=== PATIENT | male | born 1985 | race Caucasian/White ===

== ENCOUNTER 2021-09-09 20:03 | Inpatient (IN) ==
[2021-09-09 20:37] LABS: Appearance Urine Clear (Clear); Bilirubin Urine Negative (Negative); Blood Urine Negative (Negative); Color Urine Yellow; Glucose Urine UA Negative (Negative); Ketones Urine Negative (Negative); Leukocyte Esterase Urine Negative (Negative); Nitrite Urine Negative (Negative); Protein Urine Negative (Negative); Specific Gravity Urine 1.013 (1.000-1.030); Urobilinogen Urine Negative (Negative); pH Urine 6.5 (4.5-7.5)
[2021-09-09 20:55] LABS: Amphetamines+Metham, Urine Neg (Neg); Barbiturates, Urine Neg (Neg); Benzodiazepine, Urine Neg (Neg); Cocaine, Urine Neg (Neg); MDMA (Ecstacy), Urine Neg (Neg); Methadone, Urine Neg (Neg); Opiate, Urine Neg (Neg); Phencyclidine, Urine Neg (Neg)
--- NOTE | 2021-09-09 21:08 | Emergency Department Note ---
Impression & Plan Mood disorder, Marijuana use, Hypokalemia ED Provider Note Provider: Caleb Horn MD DATE OF SERVICE: 09/09/2021 CHIEF COMPLAINT: Mental health evaluation HISTORY OF PRESENT ILLNESS: Patient is a 36-year-old gentleman history of marijuana and alcohol use presenting with police today for mental health evaluation. Patient evidently is originally from [place] and has been traveling to [place]. Reportedly stopped the area several days ago and has been staying in a motel until this coming week. Was seen here several days ago for mental health evaluation and discharged from here. Patient evidently took some pictures at his motel tonight of him holding a gun to his head and at the mere hence he sent these to his mother. She became concerned called her local please officer [place] who eventually contacted local police here who went and discussed this further with the patient and brought him here for evaluation. 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 He reports that he does not want to harm himself or anybody else. He denies feeling anxious or depressed. Reports he did previously try to kill himself years ago with a Valium overdose. He states he has been inpatient psychiatrically at many facilities across the country. Reports he is not currently on medications. Reports he is recently on Seroquel several weeks ago but this made him too drowsy and thus he stopped it as he states his mother was just giving him the medicine as she has Munchhausen's. Patient states that he is working for the [employer] and that angles are protecting him and God is directing this. Patient denies wanting inpatient psychiatric care at this time and just wants to return to his motel. Police have completed a 302 petition and report they have secured a "gun "in the pictures that was found with the person when they met him and report it was a BB gun. REVIEW OF SYSTEMS: A total of 10 review of systems was obtained and negative except as stated above in the HPI. PAST MEDICAL HISTORY: As noted above MEDICATIONS: Denies current prescription medications SOCIAL HISTORY: Regular alcohol and marijuana use. PHYSICAL EXAM: GENERAL: alert and oriented in no acute distress lying in the bed in room A5 Head: normocephalic and atraumatic EYES: No injection, discharge or icterus. NECK: Trachea midline. ENT: Mucous membranes pink and moist. LUNGS: Airway patent. No retractions. Breath sounds clear HEART: Regular rate and rhythm. No chest wall tenderness ABDOMEN: Soft and non-tender, without guarding or rebound. SKIN: Acyanotic, warm, dry, without rashes NEUROLOGICAL: No focal deficits. No aphasia. No facial droop or slurred speech. Psych: Patient denies acute SI or HI. He denies hallucination is not obviously responding to external stimuli. Patient does make some grandiose statements regarding the [employer]. Patient's laboratory studies reviewed. Differential includes Mood disorder, infection, hypoglycemia, electrolyte abnormalities, cardiac sources, intracerebral event, toxicologic, trauma, neurologic, as well as other pathologies. IMPRESSION/MEDICAL DECISION MAKING: Patient cooperative here. 302 petition and statements from both police and mother reviewed. Significant questions about patient is underlying psychiatric history and report that he is off his medications. Concerning text messages/pictures showing the patient holding a gun pointed towards himself. Basic medical labs completed here without any severe abnormality with some mild hypokalemia, oral repletion ordered THC positive but the patient admits to this. Not significantly intoxicated. Patient currently denies wanting to harm her self or others but does make some slightly odd/grandiose statements that he is working for the [employer]. Question the patient safety, although the police have secured his "gun" (bb), with discharge at this time. Seems to have had some escalation compared to recent evaluation here several days ago. Seen by the business case analyst here as well. Discussed with the patient my significant safety concerns and recommendation for inpatient psychiatric care. Patient states he really just wants to go home. Patient reports that he feels he is being [place] rassed. Patient states he would agree for a 72-hour hold but wants to leave promptly by the to continue towards [place]. Evaluated by [facility] and accepted on a 201 for further inpatient care. DIAGNOSIS: Mood disorder, hypokalemia DISPOSITION: Excepted on a 201 for further inpatient care to [facility] Past Med/Surg History Medical History Bipolar 1 disorder MDD (major depressive disorder) Schizophrenia Surgical History No pertinent past surgical history Social History (Updated 09/08/21 @ 01:08 by Artemio Orozco MD) Smoking Status: Current every day smoker Tobacco Type: Cigarettes Hx Alcohol Use: Yes Hx Substance Use: Yes Prescribed Medications: Marijuana Preferred Language: Irish Feels Safe at Home: No Allergies Allergies Allergy/AdvReac Type Severity Reaction Status Date / Time No Known Allergies Allergy Verified 09/09/21 20:27 Home Meds Home Medications Medication Instructions Recorded Confirmed No Known Home Medications 09/07/21 09/09/21 Results & Data (ED) Vital Signs Vital Signs - 24 hr 09/09/21 20:10 09/09/21 22:04 Temperature 37.1 C Temperature Source Oral Pulse Rate 96 H Pulse Rate [Right Finger] 96 H 100 H Respiratory Rate 18 18 Respiratory Effort / Characteristics Non-Labored Spontaneous Non-Labored Spontaneous Respiratory Depth Normal Normal Respiratory Pattern Regular Regular Blood Pressure 147/96 H Blood Pressure [Left Arm] 147/96 H 146/82 H Blood Pressure Mean 113 Blood Pressure Mean [Left Arm] 113 103 Blood Pressure Position Sitting Blood Pressure Position [Left Arm] Sitting Sitting Pulse Oximetry 97 97 Oxygen Delivery Method Room Air Room Air Sepsis Recent Fever Within 48 Hours No Sepsis New/Unexplained Change in Mental Status N/A Sepsis Action Taken by Nursing No Action Required Laboratory Data Result diagrams: 09/09/21 21:07 09/09/21 21:07 Lab Results 09/09/21 09/09/21 09/09/21 Range/Units 20:11 20:11 20:32 WBC (4.8-10.8) K/uL RBC (4.7-6.1) M/uL Hgb (14.0-18.0) g/dL Hct (42-52) % MCV (80-100) fL MCH (25-34) pg MCHC (32-36) g/dL RDW Std Deviation (36.4-46.3) fL RDW Coeff of Deidre (11.5-14.5) % Plt Count (130-400) K/uL MPV (7.4-10.4) fL Immature Gran % (Auto) % Neut % (Auto) % Lymph % (Auto) % [place] % (Auto) % Eos % (Auto) % Baso % (Auto) % Neut # (Auto) (1.4-6.5) K/uL Lymph # (Auto) (1.2-3.4) K/uL [place] # (Auto) (0.11-0.59) K/uL Eos # (Auto) (0-0.5) K/uL Baso # (Auto) (0-0.2) K/uL Immature Gran # (Auto) (0.00-0.02) K/uL Sodium (136-145) mmol/L Potassium (3.5-5.1) mmol/L Chloride (98-107) mmol/L Carbon Dioxide (21-32) mmol/L Anion Gap (3-11) BUN (7-18) mg/dl Creatinine (0.6-1.4) mg/dl Est Cr Clr Drug Dosing ml/min Est GFR ( Amer) ml/min Est GFR (Non-Af Amer) ml/min BUN/Creatinine Ratio (10-20) Glucose (70-99) mg/dl Calcium (8.5-10.1) mg/dl Total Bilirubin (0.2-1) mg/dl AST (15-37) U/L ALT (12-78) Alkaline Phosphatase (45-117) U/L Total Protein (6.4-8.2) gm/dl Albumin (3.4-5.0) gm/dl Globulin (2.5-4.0) gm/dl Albumin/Globulin Ratio (0.9-2) TSH (0.300-4.500) uIu/ml Urine Color Yellow Urine Appearance Clear (Clear) Urine pH 6.5 (4.5-7.5) Ur Specific [place] 1.013 (1.000-1.030) Urine Protein Negative (Negative) Urine Glucose (UA) Negative (Negative) Urine Ketones Negative (Negative) Urine Blood Negative (Negative) Urine Nitrite Negative (Negative) Urine Bilirubin Negative (Negative) Urine Urobilinogen Negative (Negative) Ur Leukocyte Esterase Negative (Negative) Salicylates (2.8-20) mg/dl Urine Opiates Screen Neg (Neg) Ur Methadone, Qual Neg (Neg) Acetaminophen (10-30) ug/ml Urine Barbiturates Neg (Neg) Ur Phencyclidine (PCP) Neg (Neg) U Amphetamin/Meth Scrn Neg (Neg) MDMA (Ecstasy) Screen Neg (Neg) U Benzodiazepines Scrn Neg (Neg) Ur Cocaine Metabolite Neg (Neg) U Marijuana (THC) Screen Pos H (Neg) Ethyl Alcohol mg/dL (0-3) mg/dl SARS-CoV-2, RNA, NAAT NEGATIVE (NEGATIVE) 09/09/21 09/09/21 09/09/21 Range/Units 21:07 21:07 21:07 WBC 9.23 (4.8-10.8) K/uL RBC 4.77 (4.7-6.1) M/uL Hgb 15.2 (14.0-18.0) g/dL Hct 44.0 (42-52) % MCV 92.2 (80-100) fL MCH 31.9 (25-34) pg MCHC 34.5 (32-36) g/dL RDW Std Deviation 43.9 (36.4-46.3) fL RDW Coeff of Deidre 13.1 (11.5-14.5) % Plt Count 272 (130-400) K/uL MPV 10.7 H (7.4-10.4) fL Immature Gran % (Auto) 0.1 % Neut % (Auto) 56.2 % Lymph % (Auto) 33.3 % [place] % (Auto) 8.6 % Eos % (Auto) 1.5 % Baso % (Auto) 0.3 % Neut # (Auto) 5.19 (1.4-6.5) K/uL Lymph # (Auto) 3.07 (1.2-3.4) K/uL [place] # (Auto) 0.79 H (0.11-0.59) K/uL Eos # (Auto) 0.14 (0-0.5) K/uL Baso # (Auto) 0.03 (0-0.2) K/uL Immature Gran # (Auto) 0.01 (0.00-0.02) K/uL Sodium 141 (136-145) mmol/L Potassium 3.1 L (3.5-5.1) mmol/L Chloride 107 (98-107) mmol/L Carbon Dioxide 24 (21-32) mmol/L Anion Gap 10.0 (3-11) BUN 11 (7-18) mg/dl Creatinine 1.02 (0.6-1.4) mg/dl Est Cr Clr Drug Dosing 103.4 ml/min Est GFR ( Amer) 107.6 ml/min Est GFR (Non-Af Amer) 92.8 ml/min BUN/Creatinine Ratio 10.8 (10-20) Glucose 165 H (70-99) mg/dl Calcium 8.3 L (8.5-10.1) mg/dl Total Bilirubin 0.3 (0.2-1) mg/dl AST 27 (15-37) U/L ALT 45 (12-78) Alkaline Phosphatase 93 (45-117) U/L Total Protein 7.4 (6.4-8.2) gm/dl Albumin 3.4 (3.4-5.0) gm/dl Globulin 4.0 (2.5-4.0) gm/dl Albumin/Globulin Ratio 0.9 (0.9-2) TSH 1.380 (0.300-4.500) uIu/ml Urine Color Urine Appearance (Clear) Urine pH (4.5-7.5) Ur Specific [place] (1.000-1.030) Urine Protein (Negative) Urine Glucose (UA) (Negative) Urine Ketones (Negative) Urine Blood (Negative) Urine Nitrite (Negative) Urine Bilirubin (Negative) Urine Urobilinogen (Negative) Ur Leukocyte Esterase (Negative) Salicylates 3.2 (2.8-20) mg/dl Urine Opiates Screen (Neg) Ur Methadone, Qual (Neg) Acetaminophen < 2 L (10-30) ug/ml Urine Barbiturates (Neg) Ur Phencyclidine (PCP) (Neg) U Amphetamin/Meth Scrn (Neg) MDMA (Ecstasy) Screen (Neg) U Benzodiazepines Scrn (Neg) Ur Cocaine Metabolite (Neg) U Marijuana (THC) Screen (Neg) Ethyl Alcohol mg/dL (0-3) mg/dl SARS-CoV-2, RNA, NAAT (NEGATIVE) 09/09/21 Range/Units 21:07 WBC (4.8-10.8) K/uL RBC (4.7-6.1) M/uL Hgb (14.0-18.0) g/dL Hct (42-52) % MCV (80-100) fL MCH (25-34) pg MCHC (32-36) g/dL RDW Std Deviation (36.4-46.3) fL RDW Coeff of Deidre (11.5-14.5) % Plt Count (130-400) K/uL MPV (7.4-10.4) fL Immature Gran % (Auto) % Neut % (Auto) % Lymph % (Auto) % [place] % (Auto) % Eos % (Auto) % Baso % (Auto) % Neut # (Auto) (1.4-6.5) K/uL Lymph # (Auto) (1.2-3.4) K/uL [place] # (Auto) (0.11-0.59) K/uL Eos # (Auto) (0-0.5) K/uL Baso # (Auto) (0-0.2) K/uL Immature Gran # (Auto) (0.00-0.02) K/uL Sodium (136-145) mmol/L Potassium (3.5-5.1) mmol/L Chloride (98-107) mmol/L Carbon Dioxide (21-32) mmol/L Anion Gap (3-11) BUN (7-18) mg/dl Creatinine (0.6-1.4) mg/dl Est Cr Clr Drug Dosing ml/min Est GFR ( Amer) ml/min Est GFR (Non-Af Amer) ml/min BUN/Creatinine Ratio (10-20) Glucose (70-99) mg/dl Calcium (8.5-10.1) mg/dl Total Bilirubin (0.2-1) mg/dl AST (15-37) U/L ALT (12-78) Alkaline Phosphatase (45-117) U/L Total Protein (6.4-8.2) gm/dl Albumin (3.4-5.0) gm/dl Globulin (2.5-4.0) gm/dl Albumin/Globulin Ratio (0.9-2) TSH (0.300-4.500) uIu/ml Urine Color Urine Appearance (Clear) Urine pH (4.5-7.5) Ur Specific [place] (1.000-1.030) Urine Protein (Negative) Urine Glucose (UA) (Negative) Urine Ketones (Negative) Urine Blood (Negative) Urine Nitrite (Negative) Urine Bilirubin (Negative) Urine Urobilinogen (Negative) Ur Leukocyte Esterase (Negative) Salicylates (2.8-20) mg/dl Urine Opiates Screen (Neg) Ur Methadone, Qual (Neg) Acetaminophen (10-30) ug/ml Urine Barbiturates (Neg) Ur Phencyclidine (PCP) (Neg) U Amphetamin/Meth Scrn (Neg) MDMA (Ecstasy) Screen (Neg) U Benzodiazepines Scrn (Neg) Ur Cocaine Metabolite (Neg) U Marijuana (THC) Screen (Neg) Ethyl Alcohol mg/dL 32.6 H (0-3) mg/dl SARS-CoV-2, RNA, NAAT (NEGATIVE) Administered Medications Discontinued Medications Potassium Chloride (Potassium Chloride Crtab 20 Meq Tabcr) 40 meq PO NOW STA Stop: 09/09/21 23:40 Last Admin: 09/10/21 00:04 Dose: 40 meq Documented by: [id number] Discharge Plan Visit Data Chief Complaint: Mental Health Evaluation Stated Complaint: MENTAL HEALTH EVAL ED Provider: Caleb Horn Discharge Problem: Mood disorder, Marijuana use, Hypokalemia Patient Disposition: Transfer Behavioral Health Fac Discharge Instructions Interventions: ED Discharge Assessment Last Done: 09/10/21 00:15
[2021-09-09 21:22] LABS: Basophils # (auto) 0.03 K/uL (0-0.2); Basophils % (auto) 0.3 %; Eosinophils # (auto) 0.14 K/uL (0-0.5); Eosinophils % (auto) 1.5 %; Hemoglobin 15.2 g/dL (14.0-18.0); Immature Granulocytes # (auto) 0.01 K/uL (0.00-0.02); Immature Granulocytes % (auto) 0.1 %; Lymphocytes # (auto) 3.07 K/uL (1.2-3.4); Lymphocytes % (auto) 33.3 %; Mean Corpuscular Hemoglobin 31.9 pg (25-34); Mean Corpuscular Hgb Conc 34.5 g/dL (32-36); Mean Corpuscular Volume 92.2 fL (80-100); Mean Platelet Volume 10.7 fL (7.4-10.4); Monocytes # (auto) 0.79 K/uL (0.11-0.59); Monocytes % (auto) 8.6 %; Neutrophils # (auto) 5.19 K/uL (1.4-6.5); Neutrophils % (auto) 56.2 %; Platelet Count 272 K/uL (130-400); RDW Coefficient of Variation 13.1 % (11.5-14.5); RDW Standard Deviation 43.9 fL (36.4-46.3); Red Blood Count 4.77 M/uL (4.7-6.1); White Blood Count 9.23 K/uL (4.8-10.8)
[2021-09-09 21:39] LABS: Albumin Level 3.4 gm/dl (3.4-5.0); BUN Creatinine Ratio 10.8 (10-20); Calcium 8.3 mg/dl (8.5-10.1); Creatinine Clr Calc Pharmacy 103.4 ml/min; Est GFR (African American) 107.6 ml/min; Est GFR (Non-African American) 92.8 ml/min; Potassium 3.1 mmol/L (3.5-5.1)
[2021-09-09 21:41] LABS: Acetaminophen < 2 ug/ml (10-30); Salicylate 3.2 mg/dl (2.8-20)
[2021-09-09 21:49] LABS: Albumin Globulin Ratio 0.9 (0.9-2); Bilirubin,Total 0.3 mg/dl (0.2-1); Thyroid Stimulating Hormone 1.38 uIu/ml (0.300-4.500); Total Protein 7.4 gm/dl (6.4-8.2)
[2021-09-09] MEDS ORDERED: POTASSIUM CHLORIDE CRTAB 20 MEQ TABCR PO STA (23:39)
[2021-09-09] MEDS ORDERED: ALUMINUM/MAGNESIUM SUSP 30 ML UDC PO PRN (23:57)
[2021-09-09] MEDS ORDERED: BISMUTH SUBSALICYLATE LIQD 236 ML PO PRN (23:57)
[2021-09-09] MEDS ORDERED: ACETAMINOPHEN 325 MG TAB PO PRN (23:57)
[2021-09-09] MEDS ORDERED: SODIUM CHLORIDE 0.65% NA SOLN 45 ML (OCEAN) PRN (23:57)
[2021-09-09] MEDS ORDERED: hydrOXYzine HCl 25 MG TAB PO PRN ×2 (23:57)
[2021-09-09] MEDS ORDERED: MAGNESIUM HYDROXIDE SUSP 30 ML UDC PO PRN (23:57)
[2021-09-09] MEDS ORDERED: haloperidoL 5 MG TAB PO PRN (23:58)
[2021-09-10] MEDS ORDERED: QUEtiapine FUMARATE 100 MG TABLET PO PRN (13:03)
--- NOTE | 2021-09-10 13:29 | History & Physical ---
Date of Service September 10, 2021 Impression / Recommendations Impression 36 yo male presenting with grandiosity, delusions, seen in ED when family questioned ability to care for self given medication non-compliance. 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 He does appear well care for and has been cooperative on the unit thus far, eating, drinking. He did sign a 72 hour notice but is agreeable to ongoing hospitalization and monitoring. (1) Bipolar 1 disorder: The patient was [facility] on q15 min checks (behavioral with suicide precautions) for safety. The patient will participate in group, recreational, and milieu therapies and will be offered additional individual and family sessions as clinically appropriate. He is currently refusing ROIs and lamictal trial. He is willing to take Seroquel 100 mg prn if "it will get me out of here" and understands risks/benefits of his medications. He maintains he is planning to relocate to [place] and is familiar with their medicaid/mental health system there. Inventory Assets Strengths: intelligent, able to navigate services in past Needs: increase insight into his condition, abstain from MJ Risk Factors Assessment Male: Yes : Yes Do You Have Access To A Gun?: No Mental Health Diagnoses: Yes Previous Attempt: Yes Previous Psychiatric Hospitalization: Yes Protective Factors Assessment : No Responsible for Young Children: No (but is motivated to visit son) Employed: Yes Stable Relationships: No Psychiatric History Identifying Data MANJEET CASTILLO is a 36-year-old M from [place], has a history of bipolar disorder, and was admitted on 09/09/21 23:55 on a 201 voluntary commitment for posting about suicide. He initially presented on a 302 warrant but was willing to sign in. Chief Complaint "I went to school here and am just visiting on my way to [place], I'm 36 yo and my mom has [employer]unchausen's and I have a right to have a BB gun and post for music". History of Present Illness Patient came to ED on 09/07/21 at the urging of his family and was discharged at that time. He states he has a prescription for Seroquel and lamictal from a psychiatrist at [facility]. He hasn't taken Seroquel for several months and never started Lamictal as he does not feel he needs medication and prefers to use MJ. [place] and refuses to sign an VENICE. 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 He denies wanting to harm himself (except in [id number]) when having relationship issues. He signed a 72 hour notice this am. "I'm fine being here a bit but I don't want to lose my stuff at the hotel and need to get to [place] to see my son". He reports his son is 9 years old. He also admits to having an outstanding warrant in [place] "so I'm probably going to skilled nursing" and is not clear on the charges. He then stated the charges stem from a conspiracy involving Wilmer Franklin and that he plans to run for president in 2023, "I know I won't win, I just want to mess with people". 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 When asked about adventist preoccupations last night, being "guarded by angels" he stated "doesn't everyone into [place] want to go to [facility]? I still don't want to kill myself." Upon arrival to the unit he has been talkative but cooperative. He is eating and sleeping. He denies being depressed or anxious, even with regards to uncertainty around his status with probation, "I just want to get it cleared up with the police judge". He implied that one of the times he was hospitalized or incarcerated he met the "Batman" killer, referring to the shooting in the movie theatre. He stated he said this to impress people with the types of places he's been, not because of any attachment to that killer. The police have confiscated his BB gun. He states he had it as a prop and incorporates it into his [employer] videos and says "I know my rights" again. Past Psychiatric History Previous Psych History: bipolar disorder and schizoaffective disorder, bipolar type diagnoses in past. He discounts. Current Psychiatric Diagnosis: Mood disorder Outpatient Services: [facility] won't sign for records as "I'm not going back there". Previous Psych Admissions: multiple, reportedly 3 this fall due to medication compliance issues. Do You Have Access To A Gun?: No History of Previous Suicide Attempt: Yes (OD of Valium in [id number]) Past Medication Trials: multiple--Haldol (blunting, "no human should take that stuff"), Seroquel (c/o sedation yet also sleep disruption which is likely due to zoila), Abilify ("bad", odd comment), Zyprexa (says that the words spell sex so must mess with his sex), [place], probably Depakote, remote hx of aggression in college when intoxicated "we thought we were street thugs" Allergies Allergy/AdvReac Type Severity Reaction Status Date / Time No Known Allergies Allergy Verified 09/09/21 20:27 Home Medications Medication Instructions Recorded Confirmed Type No Known Home Medications 09/07/21 09/09/21 History Family History Family History of: Depression Alcohol History Hx of Alcohol Use Over the Past 12 Months: Yes (drinks regularly) AUDIT Total Score: 7 Smoking Use Have You Smoked or Used Tobacco Products in the Last 30 Days: Yes tobacco type: cigarettes Smoking Status: Current every day smoker Substance History Hx of Prescription Med Misuse Over the Past 12 Months: No Hx of Over the Counter Med Misuse Over the Past 12 Months: No Hx of Inhalent Misuse Over the Past 12 Months: No Hx of Organic Substance Use Over the Past 12 Months: Yes (THC) Hx of Illegal Substances/Street Drug Use Over Past 12 Months: No Problems as a Result of Past Substance Use: None Identified Personal History Living Arrangements: Home Living Arrangements Comments: Address is in [place] but lives wherever he travels Highest Grade Completed: College Highest Grade Completed Comment: states he graduated from [employer] Marital Status: Single Number Of Children: 1 Beliefs That Will Affect Care: None Legal Problems Comment: has active warrent for arrest in [place]- unclear if this is from an attempted robbery or a political incident he was involved in Patient History Medical History Bipolar 1 disorder MDD (major depressive disorder) Schizophrenia Surgical History No pertinent past surgical history Social History (Updated 09/08/21 @ 01:08 by Artemio Orozco MD) Smoking Status: Current every day smoker Tobacco Type: Cigarettes Hx Alcohol Use: Yes Hx Substance Use: Yes Prescribed Medications: Marijuana Preferred Language: Djiboutian Communication Ability: Effective 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 Required: No Beliefs That Will Affect Care: None Feels Safe at Home: No Assistive Devices: None Review of Systems Review of Systems: All systems reviewed & are unremarkable except as noted in HPI & below Physical Exam Psychiatric: Orientation: alert and oriented x 3 Apperance: appropriately dressed and appropriately groomed Eye Contact: good eye contact Motor Behavior: no abnormal motor movements Speech: + pressured speech Affect: euthymic affect Mood: no depressed mood Thought Process: + tangential thought process Thought Content: + paranoid (conspiracy against him) and + delusions Suicidal Thoughts: denies suicidal thoughts Homicidal Thoughts: denies homicidal thoughts Hallucinations: no auditory hallucinations and no visual hallucinations Cognition: attention grossly intact and language grossly intact Estimated Intelligence: consistent with education level Insight: + poor insight Judgement: + limited judgement Vital Signs (Past 24 Hours): Last Vital Signs Temp 36.4 C L 09/10/21 06:49 Pulse 67 09/10/21 06:50 Resp 16 09/10/21 06:49 BP 147/91 H 09/10/21 06:50 Pulse Ox 96 09/10/21 00:14 Exam Statement: A physical exam was performed in the ED by Dr. Orozco for the purposes of medical clearance. I accept that physical as correct and adequate for the purposes of the inpatient physical exam. Results & Data ([facility]) Laboratory Results Laboratory Results - last 24 hr 09/09/21 09/09/21 09/09/21 20:11 20:11 20:11 WBC RBC Hgb Hct MCV MCH MCHC RDW Std Deviation RDW Coeff of Deidre Plt Count MPV Immature Gran % (Auto) Neut % (Auto) Lymph % (Auto) [place] % (Auto) Eos % (Auto) Baso % (Auto) Neut # (Auto) Lymph # (Auto) [place] # (Auto) Eos # (Auto) Baso # (Auto) Immature Gran # (Auto) Sodium Potassium Chloride Carbon Dioxide Anion Gap BUN Creatinine Est Cr Clr Drug Dosing Est GFR ( Amer) Est GFR (Non-Af Amer) BUN/Creatinine Ratio Glucose Calcium Total Bilirubin AST ALT Alkaline Phosphatase Total Protein Albumin Globulin Albumin/Globulin Ratio TSH Urine Color Yellow Urine Appearance Clear Urine pH 6.5 Ur Specific [place] 1.013 Urine Protein Negative Urine Glucose (UA) Negative Urine Ketones Negative Urine Blood Negative Urine Nitrite Negative Urine Bilirubin Negative Urine Urobilinogen Negative Ur Leukocyte Esterase Negative Salicylates Urine Opiates Screen Neg Ur Methadone, Qual Neg Acetaminophen Urine Barbiturates Neg Ur Phencyclidine (PCP) Neg U Amphetamin/Meth Scrn Neg MDMA (Ecstasy) Screen Neg U Benzodiazepines Scrn Neg Ur Cocaine Metabolite Neg U Marijuana (THC) Screen Pos H U Marijuana THC Carboxy Pending Drug Screen Comment Pending Ethyl Alcohol mg/dL SARS-CoV-2, RNA, NAAT 09/09/21 09/09/21 09/09/21 20:32 21:07 21:07 WBC 9.23 RBC 4.77 Hgb 15.2 Hct 44.0 MCV 92.2 MCH 31.9 MCHC 34.5 RDW Std Deviation 43.9 RDW Coeff of Deidre 13.1 Plt Count 272 MPV 10.7 H Immature Gran % (Auto) 0.1 Neut % (Auto) 56.2 Lymph % (Auto) 33.3 [place] % (Auto) 8.6 Eos % (Auto) 1.5 Baso % (Auto) 0.3 Neut # (Auto) 5.19 Lymph # (Auto) 3.07 [place] # (Auto) 0.79 H Eos # (Auto) 0.14 Baso # (Auto) 0.03 Immature Gran # (Auto) 0.01 Sodium 141 Potassium 3.1 L Chloride 107 Carbon Dioxide 24 Anion Gap 10.0 BUN 11 Creatinine 1.02 Est Cr Clr Drug Dosing 103.4 Est GFR ( Amer) 107.6 Est GFR (Non-Af Amer) 92.8 BUN/Creatinine Ratio 10.8 Glucose 165 H Calcium 8.3 L Total Bilirubin 0.3 AST 27 ALT 45 Alkaline Phosphatase 93 Total Protein 7.4 Albumin 3.4 Globulin 4.0 Albumin/Globulin Ratio 0.9 TSH 1.380 Urine Color Urine Appearance Urine pH Ur Specific [place] Urine Protein Urine Glucose (UA) Urine Ketones Urine Blood Urine Nitrite Urine Bilirubin Urine Urobilinogen Ur Leukocyte Esterase Salicylates Urine Opiates Screen Ur Methadone, Qual Acetaminophen Urine Barbiturates Ur Phencyclidine (PCP) U Amphetamin/Meth Scrn MDMA (Ecstasy) Screen U Benzodiazepines Scrn Ur Cocaine Metabolite U Marijuana (THC) Screen U Marijuana THC Carboxy Drug Screen Comment Ethyl Alcohol mg/dL SARS-CoV-2, RNA, NAAT NEGATIVE 09/09/21 09/09/21 21:07 21:07 WBC RBC Hgb Hct MCV MCH MCHC RDW Std Deviation RDW Coeff of Deidre Plt Count MPV Immature Gran % (Auto) Neut % (Auto) Lymph % (Auto) [place] % (Auto) Eos % (Auto) Baso % (Auto) Neut # (Auto) Lymph # (Auto) [place] # (Auto) Eos # (Auto) Baso # (Auto) Immature Gran # (Auto) Sodium Potassium Chloride Carbon Dioxide Anion Gap BUN Creatinine Est Cr Clr Drug Dosing Est GFR ( Amer) Est GFR (Non-Af Amer) BUN/Creatinine Ratio Glucose Calcium Total Bilirubin AST ALT Alkaline Phosphatase Total Protein Albumin Globulin Albumin/Globulin Ratio TSH Urine Color Urine Appearance Urine pH Ur Specific [place] Urine Protein Urine Glucose (UA) Urine Ketones Urine Blood Urine Nitrite Urine Bilirubin Urine Urobilinogen Ur Leukocyte Esterase Salicylates 3.2 Urine Opiates Screen Ur Methadone, Qual Acetaminophen < 2 L Urine Barbiturates Ur Phencyclidine (PCP) U Amphetamin/Meth Scrn MDMA (Ecstasy) Screen U Benzodiazepines Scrn Ur Cocaine Metabolite U Marijuana (THC) Screen U Marijuana THC Carboxy Drug Screen Comment Ethyl Alcohol mg/dL 32.6 H SARS-CoV-2, RNA, NAAT Current Inpatient Medications Current Inpatient Medications: Current Inpatient Medications Acetaminophen (Acetaminophen 325 Mg Tab) 650 mg PO Q4H PRN PRN Reason: Headache or Minor Fever Stop: 10/09/21 23:56 Al Hydrox/Mg Hydrox/Simethicone (Aluminum/Magnesium Susp 30 Ml Udc) 30 ml PO Q4H PRN PRN Reason: GI Upset Stop: 10/09/21 23:56 Bismuth Subsalicylate (Bismuth Subsalicylate Liqd 236 Ml) 15 ml PO PRN PRN PRN Reason: Loose Stool Stop: 10/09/21 23:56 Hydroxyzine HCl (Hydroxyzine Hcl 25 Mg Tab) 50 mg PO HSZ PRN PRN Reason: Insomnia Stop: 10/09/21 23:56 Hydroxyzine HCl (Hydroxyzine Hcl 25 Mg Tab) 25 mg PO Q4H PRN PRN Reason: Anxiety Stop: 10/09/21 23:56 Magnesium Hydroxide (Magnesium Hydroxide Susp 30 Ml Udc) 30 ml PO DAILY PRN PRN Reason: Constipation Stop: 10/09/21 23:56 Quetiapine Fumarate (Quetiapine Fumarate 100 Mg Tablet) 100 mg PO Q6 PRN PRN Reason: Anxiety/Agitation Stop: 10/10/21 13:02 Sodium Chloride (Sodium Chloride 0.65% Na Soln 45 Ml ([place])) 1 - 2 sprays NA PRN PRN PRN Reason: Nasal Dryness/Congestion Stop: 10/09/21 23:56
--- NOTE | 2021-09-11 17:44 | Psychiatric Progress Note ---
Date of Service September 11, 2021 Impression / Recommendations Impression 36 yo male presenting with grandiosity, delusions, seen in ED when family questioned ability to care for self given medication non-compliance. 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 He does appear well care for and has been cooperative on the unit thus far, eating, drinking. He did sign a 72 hour notice but is agreeable to ongoing hospitalization and monitoring. 09/11/21: improving in structure of milieu and abstinence from MJ and Etoh. (1) Bipolar 1 disorder: 09/11/21: 72 hour notice, patient made family aware of discharge but will not sign VENICE, mother educated in general on commitment law in [place]. Patient does not meet criteria for forced medication. Continue monitoring and encourage aftercare. 09/10/21: The patient was admitted to the [facility]) on q15 min checks (behavioral with suicide precautions) for safety. The patient will participate in group, recreational, and milieu therapies and will be offered additional individual and family sessions as clinically appropriate. He is currently refusing ROIs and lamictal trial. He is willing to take Seroquel 100 mg prn if "it will get me out of here" and understands risks/benefits of his medications. He maintains he is planning to relocate to [place] and is familiar with their medicaid/mental health system there. Inventory Assets Strengths: intelligent, able to navigate services in past Needs: increase insight into his condition, abstain from MJ Risk Factors Assessment Male: Yes : Yes Do You Have Access To A Gun?: No Mental Health Diagnoses: Yes Previous Attempt: Yes Previous Psychiatric Hospitalization: Yes Protective Factors Assessment : No Responsible for Young Children: No (but is motivated to visit son) Employed: Yes Stable Relationships: No Interval History Identifying Information MANJEET CASTILLO is a 36-year-old M from [place], has a history of bipolar disorder, and was admitted on 09/09/21 23:55 on a 201 voluntary commitment for posting about suicide. He initially presented on a 302 warrant but was willing to sign in voluntarily. Chief Complaint "yeah I love this place, yeah I got in trouble with the police about the school stuff but I never threatened anybody". Review of Systems Sleep Information Total Hours of Sleep: 6 Sleep Comments: pt awoke x2 for about a totol of 1/2 hr. pt on q-15 minute checks Meal Information Percent Meal Consumed - Breakfast: 100 Percent Meal Consumed - Lunch: 100 Percent Meal Consumed - Dinner: 100 Subjective Subjective Patient was seen & assessed and interval progress reviewed with treatment team. Remains talkative with expansive mood in the milieu but behaviorally appropriate and social with peers. He maintains that he does not have a mood disorder and continues to decline medications but is eating, sleeping, and attending to his ADLs. He maintains that he will be moving to [place] but did call his mother and tell her he was coming home to [place] first to get his things. He refuses to sign an VENICE for mother but mother did call requesting to provide information. I returned her call and she understood that I could not release any information with regards to his care. She reported information we have on file re: past hospitalizations, non compliance with psychiatric medications, confirmed he had been incarcerated in past in [place] and that he was expelled from [facility] following the assault charge he mentioned. She stated that his baseline on medication is "not great' as mainly spends time in the basement smoking MJ but will admit to being "crazy" at that time. He has periods of spending and she is unsure where he gets money. The BB gun is not like him and he is not allowed to possess such a weapon in [place]. She states that the local police asked her to notify them when he is back in the state but states there are no active warrants or charges. Prior to coming to [place] he was on the porch drinking vodka and rapping about [place] while wearing a vest as body armor on their porch and it was upsetting neighbors. There was no direct threat but she does worry about his safety when grandiose as he will say provocative things like "I don't care if the police shoot me". She asked appropriate questions about commitment law in [place] and understands that patients can have significant psychiatric symptoms and still not meet involuntary commitment criteria in [place]. He made her aware that he is to be discharged tomorrow and I reviewed our typical discharge process but no specifics with regards to the patient. She thanked me for the call and voiced understanding of patient rights under mental health procedures act but was hoping he would be more amenable to treatment. Physical Exam Psychiatric Orientation: alert and oriented x 3 Apperance: appropriately dressed and appropriately groomed Eye Contact: good eye contact Motor Behavior: no abnormal motor movements Speech: no pressured speech Affect: euthymic affect Mood: no depressed mood Thought Process: + circumstantial thought process Thought Content: + delusions (grandiose) Suicidal Thoughts: denies suicidal thoughts Homicidal Thoughts: denies homicidal thoughts Hallucinations: no auditory hallucinations and no visual hallucinations Cognition: attention grossly intact and language grossly intact Estimated Intelligence: consistent with education level Insight: + poor insight Judgement: + limited judgement Vital Signs (Past 24 Hours) Last Vital Signs Temp 36.2 C L 09/11/21 06:44 Pulse 108 H 09/11/21 06:45 Resp 18 09/11/21 06:44 BP 103/72 09/11/21 06:45 Pulse Ox 96 09/10/21 00:14 Results & Data ([facility]) Current Inpatient Medications Current Inpatient Medications: Current Inpatient Medications Acetaminophen (Acetaminophen 325 Mg Tab) 650 mg PO Q4H PRN PRN Reason: Headache or Minor Fever Stop: 10/09/21 23:56 Al Hydrox/Mg Hydrox/Simethicone (Aluminum/Magnesium Susp 30 Ml Udc) 30 ml PO Q4H PRN PRN Reason: GI Upset Stop: 10/09/21 23:56 Bismuth Subsalicylate (Bismuth Subsalicylate Liqd 236 Ml) 15 ml PO PRN PRN PRN Reason: Loose Stool Stop: 10/09/21 23:56 Hydroxyzine HCl (Hydroxyzine Hcl 25 Mg Tab) 50 mg PO HSZ PRN PRN Reason: Insomnia Stop: 10/09/21 23:56 Hydroxyzine HCl (Hydroxyzine Hcl 25 Mg Tab) 25 mg PO Q4H PRN PRN Reason: Anxiety Stop: 10/09/21 23:56 Magnesium Hydroxide (Magnesium Hydroxide Susp 30 Ml Udc) 30 ml PO DAILY PRN PRN Reason: Constipation Stop: 10/09/21 23:56 Quetiapine Fumarate (Quetiapine Fumarate 100 Mg Tablet) 100 mg PO Q6 PRN PRN Reason: Anxiety/Agitation Stop: 10/10/21 13:02 Sodium Chloride (Sodium Chloride 0.65% Na Soln 45 Ml ([place])) 1 - 2 sprays NA PRN PRN PRN Reason: Nasal Dryness/Congestion Stop: 10/09/21 23:56 Mental Health & Subst Abuse Tx Facilities Clerk [facility] Fac[facility] Phone Number for Facilities Clerk: Case Management Appointment Comment: Upon arrival in [place], please call to establish services Post Discharge Appointments Contact Information Discharge Discharge Address: [address] [place] [address]
--- NOTE | 2021-09-12 10:01 | Discharge Summary ---
Date of Service September 12, 2021 History of Present Illness Patient came to ED on 09/07/21 at the urging of his family and was discharged at that time. He states he has a prescription for Seroquel and lamictal from a psychiatrist at [facility]. He hasn't taken Seroquel for several months and never started Lamictal as he does not feel he needs medication and prefers to use MJ. [place] and refuses to sign an VENICE. 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 He denies wanting to harm himself (except in [id number]) when having relationship issues. He signed a 72 hour notice this am. "I'm fine being here a bit but I don't want to lose my stuff at the hotel and need to get to [place] to see my son". He reports his son is 9 years old. He also admits to having an outstanding warrant in [place] "so I'm probably going to group home" and is not clear on the charges. He then stated the charges stem from a conspiracy involving Wilmer Franklin and that he plans to run for president in 2023, "I know I won't win, I just want to mess with people". 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 When asked about buddhist preoccupations last night, being "guarded by angels" he stated "doesn't everyone into [place] want to go to pending sale to [facility]? I still don't want to kill myself." Upon arrival to the unit he has been talkative but cooperative. He is eating and sleeping. He denies being depressed or anxious, even with regards to uncertainty around his status with probation, "I just want to get it cleared up with the magistrate judge". He implied that one of the times he was hospitalized or incarcerated he met the "Batman" killer, referring to the shooting in the movie theatre. He stated he said this to impress people with the types of places he's been, not because of any attachment to that killer. The police have confiscated his BB gun. He states he had it as a prop and incorporates it into his [employer] videos and says "I know my rights" again. Physical Exam Psychiatric See admission H&P and DOD summary. Vital Signs (Past 24 Hours) Last Vital Signs Temp 36.5 C 09/12/21 06:44 Pulse 86 09/12/21 06:45 Resp 16 09/12/21 06:44 BP 115/82 09/12/21 06:45 Pulse Ox 96 09/10/21 00:14 Principal Diagnosis bipolar I disorder, most recent episode manic Psychiatric Data See daily stay summary. In short, safety was maintained and the patient was cooperative with staff. He signed a 72 hour notice soon after admission to the unit and was clear that he did not want to resume psychiatric medications. He did not meet criteria for forced medications as he was a voluntary patient and was not acutely agitated or threatening. He would not sign a release for family involvement in his care but did speak with mother several times. She is understanding that given patient rights and [place] commitment laws he is not meeting ongoing criteria for involuntary commitment, particularly as he is improved from admission. He remains talkative but is much more organized, in more extended conversation he is grandiose and still focussed on various political conspiracy theories but he is not threatening to do anything but run for political office. He is returning to [facility] to collect his things and mother is aware and will be present and notify local authorities as needed. He has no outstanding charges there per mother. She has disposed of his type vest with metal and police here had secured his hotel room/confiscated BB gun. The patient was appropriate and actually quite supportive of peers in the milieu. With regards to medication, he is very aware that my medical opinion is that he resume mood stabilizers and follow up with psychiatry. He maintains he has his own supply of Lamictal (re-reviewed risk of Michael's Luis) and Seroquel should he opt to follow medical recommendations. It's likely his more concerning behaviors re: dark posts, behavior on porch at home were while intoxicated with Etoh and/or MJ, particularly since he cleared here under forced abstinence. He was counseled re: the negative effects of these substances on his underlying mood disorder. A safety plan was completed prior to discharge. He plans to relocate to [place] and is familiar with the critical access hospital health system there and how to get his medicaid transferred as he lived there before. Day of Discharge Assessment Today the patient voices readiness for discharge. They note improvement in mood and deny thoughts to harm self or others. Thoughts are organized and they are very much improved from admission. There is no evidence of psychosis interfering with his medical decision making and he has capacity to withdraw from treatment. He does not meet criteria for involuntary psychiatric hospitalization based on behavior on unit but would benefit from mood stabilizer. He is refusing to rescind his notice and desires discharge today. Transition of Care Transition Of Care Record: was reviewed with the patient Advance Directives Advance Directives Information Provided: Yes Advance Directives: No Mental Health Advance Directive: No Advance Directives on File: No Living Will: No Power of Cryogenics Repairer: No Advance Directives Reason:: Declines as Mental Health Visit. Risk Factors Assessment Male: Yes : Yes Do You Have Access To A Gun?: No Mental Health Diagnoses: Yes Previous Attempt: Yes Previous Psychiatric Hospitalization: Yes Protective Factors Assessment : No Responsible for Young Children: No (but is motivated to visit son) Employed: Yes Stable Relationships: No Tobacco Cessation at Discharge Tobacco Cessation Medication Prescribed at Discharge: Offered & Pt Refused Total Time Total Time Spent: Greater Than 30 Minutes Discharge Data Lab Results 09/09/21 09/09/21 09/09/21 20:11 20:11 20:32 WBC RBC Hgb Hct MCV MCH MCHC RDW Std Deviation RDW Coeff of Deidre Plt Count MPV Immature Gran % (Auto) Neut % (Auto) Lymph % (Auto) [place] % (Auto) Eos % (Auto) Baso % (Auto) Neut # (Auto) Lymph # (Auto) [place] # (Auto) Eos # (Auto) Baso # (Auto) Immature Gran # (Auto) Sodium Potassium Chloride Carbon Dioxide Anion Gap BUN Creatinine Est Cr Clr Drug Dosing Est GFR ( Amer) Est GFR (Non-Af Amer) BUN/Creatinine Ratio Glucose Calcium Total Bilirubin AST ALT Alkaline Phosphatase Total Protein Albumin Globulin Albumin/Globulin Ratio TSH Urine Color Yellow Urine Appearance Clear Urine pH 6.5 Ur Specific Roma 1.013 Urine Protein Negative Urine Glucose (UA) Negative Urine Ketones Negative Urine Blood Negative Urine Nitrite Negative Urine Bilirubin Negative Urine Urobilinogen Negative Ur Leukocyte Esterase Negative Salicylates Urine Opiates Screen Neg Ur Methadone, Qual Neg Acetaminophen Urine Barbiturates Neg Ur Phencyclidine (PCP) Neg U Amphetamin/Meth Scrn Neg MDMA (Ecstasy) Screen Neg U Benzodiazepines Scrn Neg Ur Cocaine Metabolite Neg U Marijuana (THC) Screen Pos H Ethyl Alcohol mg/dL SARS-CoV-2, RNA, NAAT NEGATIVE 09/09/21 09/09/21 09/09/21 21:07 21:07 21:07 WBC 9.23 RBC 4.77 Hgb 15.2 Hct 44.0 MCV 92.2 MCH 31.9 MCHC 34.5 RDW Std Deviation 43.9 RDW Coeff of Deidre 13.1 Plt Count 272 MPV 10.7 H Immature Gran % (Auto) 0.1 Neut % (Auto) 56.2 Lymph % (Auto) 33.3 [place] % (Auto) 8.6 Eos % (Auto) 1.5 Baso % (Auto) 0.3 Neut # (Auto) 5.19 Lymph # (Auto) 3.07 [place] # (Auto) 0.79 H Eos # (Auto) 0.14 Baso # (Auto) 0.03 Immature Gran # (Auto) 0.01 Sodium 141 Potassium 3.1 L Chloride 107 Carbon Dioxide 24 Anion Gap 10.0 BUN 11 Creatinine 1.02 Est Cr Clr Drug Dosing 103.4 Est GFR ( Amer) 107.6 Est GFR (Non-Af Amer) 92.8 BUN/Creatinine Ratio 10.8 Glucose 165 H Calcium 8.3 L Total Bilirubin 0.3 AST 27 ALT 45 Alkaline Phosphatase 93 Total Protein 7.4 Albumin 3.4 Globulin 4.0 Albumin/Globulin Ratio 0.9 TSH 1.380 Urine Color Urine Appearance Urine pH Ur Specific Roma Urine Protein Urine Glucose (UA) Urine Ketones Urine Blood Urine Nitrite Urine Bilirubin Urine Urobilinogen Ur Leukocyte Esterase Salicylates 3.2 Urine Opiates Screen Ur Methadone, Qual Acetaminophen < 2 L Urine Barbiturates Ur Phencyclidine (PCP) U Amphetamin/Meth Scrn MDMA (Ecstasy) Screen U Benzodiazepines Scrn Ur Cocaine Metabolite U Marijuana (THC) Screen Ethyl Alcohol mg/dL SARS-CoV-2, RNA, NAAT 09/09/21 21:07 WBC RBC Hgb Hct MCV MCH MCHC RDW Std Deviation RDW Coeff of Deidre Plt Count MPV Immature Gran % (Auto) Neut % (Auto) Lymph % (Auto) [place] % (Auto) Eos % (Auto) Baso % (Auto) Neut # (Auto) Lymph # (Auto) [place] # (Auto) Eos # (Auto) Baso # (Auto) Immature Gran # (Auto) Sodium Potassium Chloride Carbon Dioxide Anion Gap BUN Creatinine Est Cr Clr Drug Dosing Est GFR ( Amer) Est GFR (Non-Af Amer) BUN/Creatinine Ratio Glucose Calcium Total Bilirubin AST ALT Alkaline Phosphatase Total Protein Albumin Globulin Albumin/Globulin Ratio TSH Urine Color Urine Appearance Urine pH Ur Specific Roma Urine Protein Urine Glucose (UA) Urine Ketones Urine Blood Urine Nitrite Urine Bilirubin Urine Urobilinogen Ur Leukocyte Esterase Salicylates Urine Opiates Screen Ur Methadone, Qual Acetaminophen Urine Barbiturates Ur Phencyclidine (PCP) U Amphetamin/Meth Scrn MDMA (Ecstasy) Screen U Benzodiazepines Scrn Ur Cocaine Metabolite U Marijuana (THC) Screen Ethyl Alcohol mg/dL 32.6 H SARS-CoV-2, RNA, NAAT Hospital Course (1) Bipolar 1 disorder: 09/11/21: 72 hour notice, patient made family aware of discharge but will not sign VENICE, mother educated in general on commitment [place] in [place]. Patient does not meet criteria for forced medication. Continue monitoring and encourage aft ercare. 09/10/21: The patient was [facility]) on q15 min checks (behavioral with suicide precautions) for safety. The patient will participate in group, recreational, and milieu therapies and will be offered additional individual and family sessions as clinically appropriate. He is currently refusing ROIs and lamictal trial. He is willing to take Seroquel 100 mg prn if "it will get me out of here" and understands risks/benefits of his medications. He maintains he is planning to relocate to [place] and is familiar with their medicaid/mental health system there. Mental Health & Subst Abuse Tx Puppet Engineer Name of Puppet Engineer: [facility] Phone Number for Puppet Engineer: Case Management Appointment Comment: Upon arrival in [place], please call to establish services Post Discharge Appointments Smoking Cessation Counseling Tobacco Cessation Medication Prescribed at Discharge: Offered & Pt Refused Contact Information Discharge Discharge [address]: [address] [place] [address] Discharge Plan Discharge Items Patient Disposition: Home - Self-Care Reason For Visit: BIPOLAR, PSYCHOSIS Discharge Diagnosis: bipolar I disorder, most recent episode manic Activity: Resume your previous activity Non-emergency contact: Primary Care Provider, Psychiatrist and Therapist Call non-emergency contact if: you have any medication questions and your symptoms worsen Follow-up/Referrals: PCP,NO [Primary Care Provider] - Diet: Regular Addtl Attending Provider Instructions: SPECIAL CARE INSTRUCTIONS: 1. Follow through with your scheduled aftercare appointments. If unable to keep an appointment, please call to reschedule. 2. Take your medication only as prescribed. Medication should not be changed or stopped without the approval of your doctor. In the event of worsening symptoms or concerns about side effects, contact your doctor immediately. 3. Utilize new healthy coping skills, anger management skills, and stress management skills learned during your hospitalization. Journal feelings and process them with a support person. Identify stressors or situations that may result in relapse, deterioration or inappropriate behaviors and develop a plan to deal with those issues. 4. If your coping skills are ineffective and you are in crisis, contact your outpatient providers for direction. If unable to reach your providers, please call the [facility] CRISIS LINE AT , go to the [facility] walk-in center at [address], [address], [place], or go to the closest Emergency Room. 5. Avoid alcohol and un-prescribed drugs. 6. You have been provided with the Mental Health Advance Directives Pamphlet for your review. 7. Your condition is stable for discharge to outpatient level of care, but recovery is an ongoing process. Ifthoughts to harm yourself or others return, follow the safety plan developed during your stay. Planning for a safe return home includes securing weapons. Our treatment team recommends weaponsbe removed from the home until your outpatient provider reassesses your progress. In rare cases where the items themselvescannot be removed, guns and ammunitionshould be secured separatelyand keys stored by a reliable personoutside of the home. If you were admitted on an involuntary commitment, the police or other legal authorities may be involved in this process. AFTERCARE APPOINTMENTS: * Please call your insurance company prior to your scheduled appointment to confirm your aftercare providers are covered. Take your insurance information to your appointments. WHO TO CALL AND WHEN: Medical Emergencies: For questions or emergencies related to your hospital stay, please contact the Inpatient Behavioral Health Unit at [phone]. A brick paving checker is on-call 15/04 for the Behavioral Health Unit for emergencies At any time you feel your situation is an emergency, you may also call 911 immediately. Pending Studies at Discharge: No Stand-Alone Forms: [facility], Smoking Cessation Medications and DC Order Prescriptions: No Action No Known Home Medications RF: 0 Discharge Orders: Discharge Order (Routine); Ordered 09/12/21 Ordered By: Denita Prater Admission Data Admit Date/Time: 09/09/21 23:55 Attending Provider: Denita Prater Admit Provider: Denita Prater Primary Care Provider: PCP,NO Other Interventions: PSY Interdisciplinary Discharge Planning Last Done: 09/11/21 10:46 Coding Level of Care Code 51251 D/C day mgmt > 30 min Diagnoses Bipolar 1 disorder F31.9
[2021-09-13 09:46] LABS: Marijuana Quant, GCMS Urine 56 ng/mL (<5)
== END 2021-09-12 10:25 | disposition home or self-care (01) | DRG 885 ==
LOC: ED 20:03 → 3S 23:55